=== PATIENT | female | born 1930 | race Asian ===

== ENCOUNTER 2016-12-24 12:15 | Outpatient (CLI) | payer MEDICARE, OTHER ==
[2016-12-24 19:31] LABS: IRON 60 ug/dL (28-170); TOTAL IRON BINDING CAPACITY 245 ug/dL (250-450); TRANSFERRIN 175 mg/dL (192-382)
[2016-12-24 19:37] LABS: FERRITIN 281.5 ng/mL (11.0-306.8)
[2016-12-24 19:41] LABS: FOLATE 13.47 ng/mL (5.90 - >24.8)
== END 2016-12-24 12:16 | disposition home or self-care (01) ==
LOC: LAB.WCP 12:15
PROVIDERS: ATTEND Physician Assistant Medical
DX: D64.9 Anemia, unspecified (principal)
CPT/HCPCS: 36415; 82607; 82728; 82746; 82747; 83540; 84466

== ENCOUNTER 2016-12-26 09:21 | Outpatient (CLI) | payer MEDICARE, OTHER ==
--- NOTE | 2016-12-30 14:31 | DEXA Report ---
DEXA SCAN: 12/26/2016 CLINICAL INDICATION: Postmenopausal screening. TECHNIQUE: Dual energy x-ray absorptiometry (DXA) was performed on a [facility] system. Regions measured are the AP spine, femoral neck, and, if needed, forearm. COMPARISON: None. In accordance with the International Society for Clinical Densitometry (ISCD) guidelines, data from previous exams may be reanalyzed using current recommendations and techniques. This is done to allow a more accurate basis for comparison with the current study. FINDINGS Data for the lumbar spine is as follows: REGION BMD (g/cm/cm) T-SCORE Z-SCORE L1 1.173 0.4 2.8 L2 1.202 0.0 2.4 L3 1.294 0.8 3.2 L4 1.310 0.9 3.3 TOTAL 1.254 0.6 3.0 NOTE: All evaluable vertebrae are used for classification. Data for the hip is as follows: REGION BMD (g/cm/cm) T-SCORE Z-SCORE Neck 0.674 -2.6 0.1 TOTAL 0.866 -1.1 1.5 NOTE: The femoral neck or total proximal femur, whichever is lowest, is used for classification. IMPRESSION: THE WHO CLASSIFICATION BASED ON THE INTERNATIONAL REFERENCE STANDARD IS OSTEOPOROSIS (REFERENCE LEFT FEMORAL NECK). FRACTURE RISK IS HIGH. RECOMMENDATION: Patients with diagnosis of osteoporosis or osteopenia should have regular bone mineral density assessment. For those eligible for Medicare, routine testing is allowed once every 2 years. Testing frequency can be increased for patients who have rapidly progressing disease or for those who are receiving medical therapy to restore bone mass. COMMENT: World Health Organization (WHO) definitions for osteoporosis and osteopenia: NORMAL BMD: T-score at -1.0 or higher, fracture risk is low. OSTEOPENIA BMD: T-score between -1.0 and -2.5, fracture risk is increased. OSTEOPOROSIS BMD: T-score at -2.5 or lower, fracture risk high. National Osteoporosis Foundation recommends: 1. Obtain adequate dietary calcium (at least 1200 mg per day) and vitamin D (400 -800 international units per day). 2. Participate, as appropriate, in regular weightbearing and muscle- strengthening exercise. 3. Avoid tobacco use and reduce alcohol and caffeine intake. 4. For more detailed information see the website at www.NOF.org. MTDD
== END 2016-12-26 09:22 | disposition home or self-care (01) ==
LOC: DI 09:21
PROVIDERS: ATTEND Physician Assistant Medical
DX: M81.0 Age-related osteoporosis without current pathological fracture (principal)
CPT/HCPCS: 77080

== ENCOUNTER 2017-03-17 08:00 | Outpatient (CLI) | payer MEDICARE, OTHER ==
[2017-03-17 12:54] LABS: CALCIUM 8.6 mg/dL (8.5-10.3); CREATININE 2.7 mg/dL (0.4-1.0)
[2017-03-17 13:32] LABS: HB2 TOTAL 9.5 g/dL; HEMOGLOBIN A1C 0.42 g/dL; HEMOGLOBIN A1C % 6.2 % (4.6-6.2)
== END 2017-03-17 08:01 | disposition home or self-care (01) ==
LOC: LAB.WCP 08:00
PROVIDERS: ATTEND Physician Assistant Medical
DX: E11.9 Type 2 diabetes mellitus without complications (principal)
CPT/HCPCS: 36415; 80048; 82043; 83036

== ENCOUNTER 2017-07-20 08:19 | Outpatient (CLI) | payer MEDICARE, OTHER ==
[2017-07-20 12:58] LABS: ALBUMIN 3.4 g/dL (3.2-5.5); ALBUMIN/GLOBULIN RATIO 1.1 (1.0-2.2); ALKALINE PHOSPHATASE 38 IU/L (42-121); ALT ALANINE AMINOTRANSFERASE 10 IU/L (10-60); AST ASPARTATE AMINOTRANSFERASE 16 IU/L (10-42); BILIRUBIN,TOTAL 0.9 mg/dL (0.2-1.0); BUN - BLOOD UREA NITROGEN 59 mg/dL (6-20); CALCIUM 8.7 mg/dL (8.5-10.3); CARBON DIOXIDE - CO2 22 mmol/L (21-32); CHLORIDE 100 mmol/L (101-111); CHOL/HDL RATIO 2.8 (<4.4); CHOLESTEROL 203 mg/dL; CREATININE 2.9 mg/dL (0.4-1.0); GFR - MDRD 15 (>89); GLUCOSE 117 mg/dL (70-100); HB2 TOTAL 12.2 g/dL; HDL CHOLESTEROL 72 mg/dL; HEMOGLOBIN A1C 0.55 g/dL; HEMOGLOBIN A1C % 6.3 % (4.6-6.2); LDL CHOLESTEROL,CALCULATED 114 mg/dL; LDL/HDL RATIO 1.6 (<4.4); SODIUM 132 mmol/L (135-145); TOTAL PROTEIN 6.4 g/dL (6.7-8.2); VLDL CHOLESTEROL 17 mg/dL
== END 2017-07-20 08:20 | disposition home or self-care (01) ==
LOC: LAB.WCP 08:19
PROVIDERS: ATTEND Physician Assistant Medical
DX: E11.9 Type 2 diabetes mellitus without complications (principal)
CPT/HCPCS: 36415; 80053; 80061; 83036; 83721

== ENCOUNTER 2017-10-19 15:55 | Outpatient (CLI) | payer MEDICARE, OTHER ==
--- NOTE | 2017-10-19 22:51 | XRAY Report ---
Procedure Date: 10/19/2017 Accession Number: [id number] / [id number] Procedure: XR - Chest 2 View X-Ray CPT Code: 89493 FULL RESULT: EXAM: CHEST RADIOGRAPHY EXAM DATE: 10/19/2017 04:27 PM. CLINICAL HISTORY: ESRD, R/O TB FOR STARTING DIALYSIS. COMPARISON: CHEST 1 VIEW 12/28/2012. TECHNIQUE: 2 views. FINDINGS: Lungs/Pleura: There are reticular and linear opacities at the lateral right costophrenic angle without significant interval change. No acute consolidative process. No cavitary lung lesion or pleural effusion. Mediastinum: The heart size is normal. Trachea is midline. Other: None. IMPRESSION: No acute pneumonia or findings suspicious for active pulmonary tuberculosis. Chronic scar at lateral right lung base. RADIA
== END 2017-10-19 15:56 | disposition home or self-care (01) ==
LOC: DI 15:55
PROVIDERS: ATTEND Internal Medicine Nephrology
DX: Z11.1 Encounter for screening for respiratory tuberculosis (principal); N18.6 End stage renal disease
CPT/HCPCS: 71046

== ENCOUNTER 2017-11-05 15:12 | Outpatient (CLI) | payer MEDICARE, OTHER | END 2017-11-05 15:13 | disposition critical access hospital (66) | LOC: EMS 15:12 | PROVIDERS: ATTEND Surgery | DX: R55 Syncope and collapse (principal); R42 Dizziness and giddiness | CPT/HCPCS: A0425; A0429 ==

== ENCOUNTER 2017-11-05 15:38 | Emergency (ER) | payer MEDICARE, OTHER ==
[2017-11-05] MEDS ORDERED: SODIUM CHLORIDE 0.9% 500 ML IV ONE (15:44)
--- NOTE | 2017-11-05 15:56 | ED Physician Documentation ---
History of Present Illness - Stated complaint Stated Complaint: SYNCOPE - Additonal information Additional information: hx from pt 87 y/o f was at dialysis center being taught peritoneal dialysis finished dialysis was sitting up had a syncopal episode - pale unconscious shaking incontinent of stool they checked her pulse - present regular and 59 laid her down and she promptly recovered without any post ictal period she denies an pain - no LOZADA CP AP denies fever cough abd pain NVD Review of Systems Constitutional: denies: Fever, Chills Cardiac: denies: Chest pain / pressure Respiratory: denies: Dyspnea GI: denies: Abdominal Pain, Nausea, Vomiting, Diarrhea : reports: Other (ESRD) Neurologic: reports: Syncope, Seizure (maybe - but no postictal period). denies : Head injury Endocrine: denies: Easy bruising / bleeding Immunocompromised: denies: Immunocompromised PD PAST MEDICAL HISTORY - Past Medical History Cardiovascular: Hypertension Respiratory: Asthma Endocrine/Autoimmune: Type 2 diabetes GI: None : Renal insuffiency HEENT: None Psych: None Musculoskeletal: Osteoporosis Derm: None - Past Surgical History Past Surgical History: Yes General: Cholecystectomy, Colonoscopy - Present Medications Home Medications: Ambulatory Orders Medication Instructions Recorded Confirmed Carvedilol [Coreg] 12.5 mg PO DAILY 10/21/12 06/02/17 Lisinopril [Prinivil] 5 mg PO DAILY 10/21/12 06/02/17 Sitagliptin Phosphate [Januvia] 25 mg PO DAILY 10/21/12 06/02/17 Spironolactone [Aldactone] 50 mg PO DAILY 10/21/12 06/02/17 traMADol [Ultram] 50 mg PO ONCE 10/21/12 06/02/17 Cyclophosphamide 75 mg PO DAILY 12/26/12 06/02/17 Furosemide 1 tab PO BID 06/02/17 06/02/17 hydrALAZINE [Apresoline] 1 tab PO BID 06/02/17 06/02/17 - Allergies Allergies/Adverse Reactions: Allergies Allergy/AdvReac Type Severity Reaction Status Date / Time No Known Drug Allergies Allergy Verified 11/05/17 15:54 - Social History Does the pt smoke?: No Smoking Status: Former smoker Does the pt drink ETOH?: No Does the pt have substance abuse?: No - Immunizations Immunizations are current?: Yes Immunizations: TDAP >10years/unknown PD ED PE NORMAL - Vitals Vital signs reviewed: Yes - General General: Alert and oriented X 3 - HEENT HEENT: Atraumatic - Neck Neck: Supple, no meningeal sign - Cardiac Cardiac: RRR - Respiratory Respiratory: No respiratory distress - Abdomen Abdomen: Soft, Non tender, Other (peritoneal dialysis site s erythema) - Derm Derm: Normal color - Neuro Neuro: Alert and oriented X 3, No motor deficit Eye Opening: Spontaneous Motor: Obeys Commands Verbal: Oriented GCS Score: 15 Results - Vitals Vitals: Vital Signs - 24 hr 11/05/17 11/05/17 15:46 17:11 Temperature 36.1 C L Heart Rate 64 73 Respiratory 16 Rate Blood Pressure 154/80 H 141/65 H O2 Saturation 98 97 Oxygen O2 Source Room air - EKG (time done) 1554 Rate: Rate (enter#) (70) Rhythm: NSR [place]: Normal Intervals: Normal [place] QRS: Normal Ischemia: Non specific changes (< [address] elev anterior does not appear ischemic) - Labs Labs: Laboratory Tests 11/05/17 11/05/17 15:55 15:55 WBC 6.9 RBC 2.50 L Hgb 8.4 L Hct 24.5 L MCV 98.2 MCH 33.8 H MCHC 34.4 RDW 13.0 Plt Count 263 MPV 6.8 L Neut # (Auto) 4.6 Lymph # (Auto) 1.2 L [place] # (Auto) 0.8 Eos # (Auto) 0.3 Baso # (Auto) 0.1 Absolute Nucleated RBC 0.01 Nucleated RBC % 0.1 Sodium 130 L Potassium 3.9 Chloride 99 L Carbon Dioxide 19 L Anion Gap 12.0 BUN 81 H* Creatinine 3.4 H Estimated GFR (MDRD) 13 L Glucose 222 H Calcium 9.2 PD MEDICAL DECISION MAKING - ED course ED course: anemia not new pt go epo today no bloody black BM felt much better after 500 cc IVF not orthostatic, passed road test likely volume depletion s/p dialysis with orthostatic syncope - Sepsis Event Vital Signs: Vital Signs - 24 hr 11/05/17 11/05/17 15:46 17:11 Temperature 36.1 C L Heart Rate 64 73 Respiratory 16 Rate Blood Pressure 154/80 H 141/65 H O2 Saturation 98 97 Oxygen O2 Source Room air Departure - Departure Disposition: 01 Home, Self Care Clinical Impression: Syncope due to orthostatic hypotension Condition: Good Instructions: ED Hypotension Orthostatic Follow-Up: Lata Swenson PA-C [Primary Care Provider] - Comments: Your labs are fine except for the anemia which is not new. It seems likely that your blood pressure was low after the fluid was removed in dialysis and so you passed out. You are feeling better now after some IV fluids and I think it is safe for you to go home. Please rest for the remainder of the day Return if worse.
[2017-11-05 16:05] LABS: BASOPHILS # (AUTO) 0.1 10^3/uL (0.0-0.1); BASOPHILS % (AUTO) 1.1 %; EOSINOPHILS # (AUTO) 0.3 10^3/uL (0.0-0.7); EOSINOPHILS % (AUTO) 4.3 %; HGB - HEMOGLOBIN 8.4 g/dL (12.0-16.0); LYMPHOCYTES # (AUTO) 1.2 10^3/uL (1.5-3.5); MEAN CORPUSCULAR HEMOGLOBIN 33.8 pg (27.0-31.0); MEAN CORPUSCULAR HGB CONC 34.4 g/dL (32.0-36.0); MEAN CORPUSCULAR VOLUME 98.2 fL (81.0-99.0); MEAN PLATELET VOLUME 6.8 fL (7.9-10.8); MONOCYTES # (AUTO) 0.8 10^3/uL (0.0-1.0); MONOCYTES % (AUTO) 10.9 %; NEUTROPHILS # (AUTO) 4.6 10^3/uL (1.5-6.6); NEUTROPHILS % (AUTO) 66.7 %; PLT - PLATELET COUNT 263 10^3/uL (130-450); WHITE BLOOD COUNT 6.9 x10^3/uL (4.8-10.8)
[2017-11-05 16:20] LABS: CALCIUM 9.2 mg/dL (8.5-10.3); CREATININE 3.4 mg/dL (0.4-1.0)
[2017-11-05 17:11] VITALS: BP 141/65
== END 2017-11-05 17:50 | disposition home or self-care (01) ==
LOC: EDUNIT# → ED 15:38
DX: I95.1 Orthostatic hypotension (principal); I10 Essential (primary) hypertension; E11.9 Type 2 diabetes mellitus without complications; N28.9 Disorder of kidney and ureter, unspecified; Z87.891 Personal history of nicotine dependence; Z99.2 Dependence on renal dialysis
CPT/HCPCS: 36415; 80048; 85025; 93005; 96360; 99282; 99283

== ENCOUNTER → 2018-01-25 | Outpatient (CLI) | payer MEDICARE, OTHER ==
[2018-01-25 17:06] LABS: ALBUMIN 2.9 g/dL (3.2-5.5); ALBUMIN/GLOBULIN RATIO 0.8 (1.0-2.2); ALKALINE PHOSPHATASE 46 IU/L (42-121); ALT ALANINE AMINOTRANSFERASE 15 IU/L (10-60); AST ASPARTATE AMINOTRANSFERASE 23 IU/L (10-42); BILIRUBIN,TOTAL 0.8 mg/dL (0.2-1.0); BUN - BLOOD UREA NITROGEN 41 mg/dL (6-20); CALCIUM 8.3 mg/dL (8.5-10.3); CARBON DIOXIDE - CO2 24 mmol/L (21-32); CHLORIDE 93 mmol/L (101-111); CHOL/HDL RATIO 3.1 (<4.4); CHOLESTEROL 207 mg/dL; CREATININE 2.4 mg/dL (0.4-1.0); GFR - MDRD 19 (>89); GLUCOSE 155 mg/dL (70-100); HDL CHOLESTEROL 66 mg/dL; LDL CHOLESTEROL,CALCULATED 129 mg/dL; SODIUM 126 mmol/L (135-145); TOTAL PROTEIN 6.6 g/dL (6.7-8.2); VLDL CHOLESTEROL 12 mg/dL
[2018-01-25 17:23] LABS: HB2 TOTAL 12.8 g/dL; HEMOGLOBIN A1C 0.72 g/dL; HEMOGLOBIN A1C % 7.3 % (4.6-6.2)
== END ==
LOC: LAB.WCP 09:23
PROVIDERS: ATTEND Physician Assistant Medical
DX: E11.9 Type 2 diabetes mellitus without complications (principal)
CPT/HCPCS: 36415; 80053; 80061; 83036; 83721

== ENCOUNTER 2018-08-10 13:02 | Outpatient (CLI) | payer MEDICARE, OTHER ==
--- NOTE | 2018-08-10 15:06 | CT Report ---
Reason: COUGH Procedure Date: 08/10/2018 Accession Number: [id number] / [id number] Procedure: CT - CHEST WO CPT Code: FULL RESULT: EXAM: CT CHEST EXAM DATE: 08/10/2018 01:50 PM. CLINICAL HISTORY: Cough. COMPARISONS: None. TECHNIQUE: Routine helical CT imaging was performed through the chest. IV contrast: None. Reconstructions: Coronal and sagittal. In accordance with CT protocol optimization, one or more of the following dose reduction techniques were utilized for this exam: automated exposure control, adjustment of mA and/or KV based on patient size, or use of iterative reconstructive technique. FINDINGS: Lungs/Pleura: There is left greater than right upper lobe groundglass opacity with tree-in-bud nodules bilaterally. Pulmonary background demonstrates upper lobe predominant mild to moderate emphysema. At the lung bases right greater than left is interstitial thickening in a subpleural distribution with subtle distal bronchiectasis, suggestive of a component of fibrosis. There is no lobar consolidation. Sensitivity for nodules is limited in the setting of the background pulmonary parenchymal disease. Within these limitations, scattered bilateral pulmonary nodules are detected, for example, right upper lobe 3 mm nodule image 23 series 4, right upper lobe 3 mm nodule image 24, image 38 fissure based nodule 4 mm on the right, left lower lobe 6 mm nodule on image 31. Mediastinum: Normal. No adenopathy or masses. The heart and great vessels are normal. Bones: The main pulmonary artery measures up to 3.2 cm, enlarged. There are mild aortic calcifications and moderate three-vessel coronary calcifications. There is no pericardial effusion. Mediastinal lymphadenopathy is seen in the aortopulmonary window, image 21 series 3 and image 17 series 6, up to 1.2 cm in short axis. Sensitivity for hilar lymphadenopathy is limited by absence of contrast, fullness of the left hilum is noted without discretely measurable node. Visualized Abdomen: Bilateral nonobstructing renal calculi, less than 1 cm as visualized. Other: None. IMPRESSION: Upper lobe predominant patchy opacities with possibly centrilobular nodules is nonspecific and can be seen with respiratory bronchiolitis interstitial lung disease as well as more common etiologies such as atypical pneumonia. Interstitial predominant pattern with distal subtle bronchiectasis at the lung bases is also noted, possibly early fibrotic lung disease. Pulmonary nodules. Recommend follow-up of the described nodule(s) according to the following guidelines: Fleischner Society Recommendations 2017 MacBerniehochris et al. Radiology 2017 Solid Nodules-High Risk Patients: 6-8mm (multiple) -CT at 3-6 months, then CT at 18-24 months RADIA
== END 2018-08-10 13:03 | disposition home or self-care (01) ==
LOC: DI 13:02
PROVIDERS: ATTEND Family Medicine
DX: R91.8 Other nonspecific abnormal finding of lung field (principal); J47.9 Bronchiectasis, uncomplicated; R05 Cough
CPT/HCPCS: 71250; 94010

== ENCOUNTER 2018-08-10 13:04 | Outpatient (CLI) | payer MEDICARE, OTHER ==
[~2018-08-10 13:04] MED LIST: ALBUTEROL NEB 2.5 MG/3 ML INH SCH
== END 2018-08-10 13:05 | disposition home or self-care (01) ==
LOC: RT 13:04
PROVIDERS: ATTEND Physician Assistant Medical
DX: R05 Cough (principal)
CPT/HCPCS: 94010

== ENCOUNTER 2018-08-13 13:22 | Emergency (ER) | payer MEDICARE, OTHER ==
--- NOTE | 2018-08-13 16:03 | XRAY Report ---
Reason: Irregular HR Procedure Date: 08/13/2018 Accession Number: [id number] / [id number] Procedure: XR - Chest 1 View X-Ray CPT Code: 83989 FULL RESULT: EXAM: CHEST RADIOGRAPHY EXAM DATE: 08/13/2018 03:49 PM. CLINICAL HISTORY: Irregular HR. COMPARISON: 12/28/2012. TECHNIQUE: 1 view. FINDINGS: Lungs/Pleura: There is a chronic density in the lateral right lung base which appears unchanged. There is mild bilateral apical reticular opacity with architectural distortion. No acute airspace disease. Lung volumes are stable. Mediastinum: Heart size is normal. Trachea is midline. Other: None. IMPRESSION: No acute airspace disease. Chronic pulmonary density at right lung base and lung apices without change since 2012. RADIA
--- NOTE | 2018-08-13 16:13 | ED Physician Documentation ---
PD HPI CHEST PAIN - Stated complaint Stated Complaint: IRREGULAR HEARTBEAT - Chief complaint Chief Complaint: Cardiac - History obtained from History obtained from: Patient, Caregiver - History of Present Illness Timing - onset: Today (She went to her appointment for labs for peritoneal dialysis today and they noticed an irregular heartbeat and sent her here for evaluation. She is completely asymptomatic without palpitations, chest pain or trouble breathing.) Review of Systems Constitutional: denies: Fever, Chills Throat: denies: Dental pain / toothache, Sore throat Cardiac: denies: Chest pain / pressure, Palpitations, Pedal edema, Calf pain PD PAST MEDICAL HISTORY - Past Medical History Cardiovascular: Hypertension Respiratory: Asthma Endocrine/Autoimmune: Type 2 diabetes GI: None : Renal insuffiency HEENT: None Psych: None Musculoskeletal: Osteoporosis Derm: None - Past Surgical History Past Surgical History: Yes General: Cholecystectomy, Colonoscopy - Present Medications Home Medications: Ambulatory Orders Medication Instructions Recorded Confirmed Carvedilol [Coreg] 12.5 mg PO DAILY 10/21/12 06/02/17 Sitagliptin Phosphate [Januvia] 25 mg PO DAILY 10/21/12 06/02/17 Spironolactone [Aldactone] 50 mg PO DAILY 10/21/12 06/02/17 Cyclophosphamide 75 mg PO DAILY 12/26/12 06/02/17 Furosemide 1 tab PO BID 06/02/17 06/02/17 hydrALAZINE [Apresoline] 1 tab PO BID 06/02/17 06/02/17 Alendronate [Fosamax] 70 mg PO Q7D 08/13/18 08/13/18 Doxycycline Hyclate 50 mg PO 08/13/18 08/13/18 Potassium Chloride 20 meq PO BID #10 tab.er.prt 08/13/18 Sitagliptin Phosphate [Januvia] 25 mg PO 08/13/18 08/13/18 - Allergies Allergies/Adverse Reactions: Allergies Allergy/AdvReac Type Severity Reaction Status Date / Time No Known Drug Allergies Allergy Verified 08/13/18 13:35 - Social History Does the pt smoke?: No Smoking Status: Former smoker Does the pt drink ETOH?: No Does the pt have substance abuse?: No - Immunizations Immunizations are current?: Yes Immunizations: TDAP >10years/unknown PD ED PE NORMAL - Vitals Vital signs reviewed: Yes - General General: Alert and oriented X 3, No acute distress - Cardiac Cardiac: RRR, No murmur - Respiratory Respiratory: No respiratory distress, Clear bilaterally - Abdomen Abdomen: Non tender - Extremities Extremities: No edema, No calf tenderness / cord - Psych Psych: Normal mood, Normal affect Results - Vitals Vitals: Vital Signs - 24 hr 08/13/18 13:32 Temperature 35.7 C L Heart Rate 88 Respiratory 14 Rate Blood Pressure 146/87 H O2 Saturation 99 Oxygen O2 Source Room air - EKG (time done) 1324 Rate: Rate (enter#) (90) Rhythm: NSR (with pacs) [place]: Normal Intervals: Normal [place], Prolonged QT QRS: Normal Ischemia: Non specific changes Computer interpretation: Agree with computer - Labs Labs: Laboratory Tests 08/13/18 08/13/18 08/13/18 16:00 16:00 16:00 WBC 11.7 H RBC 3.45 L Hgb 10.8 L Hct 32.9 L MCV 95.3 MCH 31.4 H MCHC 33.0 RDW 14.5 Plt Count 320 MPV 6.3 L Neut # (Auto) 6.9 H Lymph # (Auto) 2.6 [place] # (Auto) 1.6 H Eos # (Auto) 0.5 Baso # (Auto) 0.1 Absolute Nucleated RBC 0.00 Nucleated RBC % 0.0 Sodium 126 L Potassium 2.4 L* Chloride 86 L Carbon Dioxide 23 Anion Gap 17.0 H BUN 74 H Creatinine 4.9 H Estimated GFR (MDRD) 8 L Glucose 165 H Calcium 9.1 Total Bilirubin 0.7 AST 31 ALT 26 Alkaline Phosphatase 65 Troponin I 0.06 Total Protein 8.0 Albumin 3.4 Globulin 4.6 H Albumin/Globulin Ratio 0.7 L Lipase 102 H PD MEDICAL DECISION MAKING - ED course ED course: 88-year-old woman with PACs, probably due to the hypokalemia. I spoke with Dr. Villareal on-call for her proteomics scientist who recommended 100 mEq orally spread out over the first day and then 40 mEq a day until follow-up. Departure - Departure Disposition: Home, Self Care Clinical Impression: PAC (premature atrial contraction), Hypokalemia Condition: Good Record reviewed to determine appropriate education?: Yes Instructions: Hypokalemia Dc Prescriptions: Potassium Chloride 20 meq PO BID #10 tab.er.prt Comments: Your potassium was low today at 2.4. This is probably what is causing the extra heartbeats. I spoke with the proteomics scientist on-call for Dr. Donaldson who recommended a total of 100 mEq (5 tablets) over the first 24 hours, then 1 tablet twice a day and recheck labs on Thursday.
[2018-08-13 16:21] LABS: BASOPHILS # (AUTO) 0.1 10^3/uL (0.0-0.1); BASOPHILS % (AUTO) 0.8 %; EOSINOPHILS # (AUTO) 0.5 10^3/uL (0.0-0.7); EOSINOPHILS % (AUTO) 4.1 %; HGB - HEMOGLOBIN 10.8 g/dL (12.0-16.0); LYMPHOCYTES # (AUTO) 2.6 10^3/uL (1.5-3.5); LYMPHOCYTES % (AUTO) 22.4 %; MEAN CORPUSCULAR HEMOGLOBIN 31.4 pg (27.0-31.0); MEAN CORPUSCULAR VOLUME 95.3 fL (81.0-99.0); MEAN PLATELET VOLUME 6.3 fL (7.9-10.8); MONOCYTES # (AUTO) 1.6 10^3/uL (0.0-1.0); MONOCYTES % (AUTO) 13.3 %; NEUTROPHILS # (AUTO) 6.9 10^3/uL (1.5-6.6); NEUTROPHILS % (AUTO) 59.4 %; PLT - PLATELET COUNT 320 10^3/uL (130-450); RED BLOOD COUNT 3.45 10^6/uL (4.20-5.40); RED CELL DISTRIBUTION WIDTH 14.5 % (12.0-15.0); WHITE BLOOD COUNT 11.7 x10^3/uL (4.8-10.8)
[2018-08-13 16:35] LABS: ALBUMIN 3.4 g/dL (3.2-5.5); ALBUMIN/GLOBULIN RATIO 0.7 (1.0-2.2); BILIRUBIN,TOTAL 0.7 mg/dL (0.2-1.0); CALCIUM 9.1 mg/dL (8.5-10.3); CREATININE 4.9 mg/dL (0.4-1.0)
[2018-08-13 17:04] VITALS: BP 137/60
== END 2018-08-13 17:04 | disposition home or self-care (01) ==
LOC: ED 13:22
DX: E87.6 Hypokalemia (principal); I49.1 Atrial premature depolarization; I45.81 Long QT syndrome; Z99.2 Dependence on renal dialysis; N28.9 Disorder of kidney and ureter, unspecified; I10 Essential (primary) hypertension; E11.9 Type 2 diabetes mellitus without complications; Z79.84 Long term (current) use of oral hypoglycemic drugs; Z87.891 Personal history of nicotine dependence
CPT/HCPCS: 36415; 71045; 80053; 83690; 84484; 85025; 93005; 99283

== ENCOUNTER 2018-08-18 09:05 | Outpatient (CLI) | payer MEDICARE, OTHER ==
[2018-08-18 14:40] LABS: HB2 TOTAL 10.6 g/dL; HEMOGLOBIN A1C 0.68 g/dL
[2018-08-18 14:42] LABS: ALBUMIN 2.9 g/dL (3.2-5.5); ALBUMIN/GLOBULIN RATIO 0.6 (1.0-2.2); ALKALINE PHOSPHATASE 60 IU/L (42-121); ALT ALANINE AMINOTRANSFERASE 23 IU/L (10-60); AST ASPARTATE AMINOTRANSFERASE 35 IU/L (10-42); BILIRUBIN,TOTAL 0.6 mg/dL (0.2-1.0); BUN - BLOOD UREA NITROGEN 64 mg/dL (6-20); CALCIUM 8.3 mg/dL (8.5-10.3); CARBON DIOXIDE - CO2 21 mmol/L (21-32); CHLORIDE 92 mmol/L (101-111); CHOL/HDL RATIO 2.3 (<4.4); CHOLESTEROL 124 mg/dL; CREATININE 4.7 mg/dL (0.4-1.0); GFR - MDRD 9 (>89); GLUCOSE 117 mg/dL (70-100); HDL CHOLESTEROL 54 mg/dL; LDL CHOLESTEROL,CALCULATED 49 mg/dL; LDL/HDL RATIO 0.9 (<4.4); SODIUM 125 mmol/L (135-145); TOTAL PROTEIN 7.5 g/dL (6.7-8.2); VLDL CHOLESTEROL 21 mg/dL
== END 2018-08-18 09:06 | disposition home or self-care (01) ==
LOC: LAB.WCP 09:05
PROVIDERS: ATTEND Physician Assistant Medical
DX: E11.9 Type 2 diabetes mellitus without complications (principal); E78.5 Hyperlipidemia, unspecified; I10 Essential (primary) hypertension
CPT/HCPCS: 36415; 80053; 80061; 83036; 83721; 84443